=== PATIENT | female | born 1955 | race Caucasian/White ===

== ENCOUNTER → 2016-09-11 16:27 | Outpatient (CLI) | payer OTHER | END | disposition home or self-care (01) | LOC: D.MAMMO 15:30 | DX: Z12.31 Encounter for screening mammogram for malignant neoplasm of breast (principal) ==

== ENCOUNTER 2018-09-30 09:00 | Outpatient (CLI) | payer MEDICARE, OTHER | END 2018-09-30 10:00 | disposition home or self-care (01) | LOC: D.MAMMO 09:00 | PROVIDERS: ATTEND Family Medicine | DX: Z12.31 Encounter for screening mammogram for malignant neoplasm of breast (principal) ==